=== PATIENT | female | born 1985 | race Caucasian/White ===

== ENCOUNTER 2017-10-24 10:19 | Inpatient (IN) ==
[2017-10-24] MEDS ORDERED: Famotidine 20 MG/2 ML VIAL IVP PRN (10:35)
[2017-10-24] MEDS ORDERED: Naloxone 0.4 MG/ML INJ IVP PRN (10:35)
[2017-10-24] MEDS ORDERED: *HR* Nalbuphine 20 MG/ML AMPUL IVP PRN (10:35)
[2017-10-24] MEDS ORDERED: Ondansetron 4 MG/2 ML VIAL IVP PRN (10:35)
--- NOTE | 2017-10-24 10:45 | OB/GYN History & Physical ---
Date of Encounter: 10/24/17 Time of Encounter: 11:00 Assessment and Plan (1) 39 weeks gestation of Current visit: Yes Status: Acute Plan: - admit to labor and delivery - obtain CBC - FHR monitored, baseline = 140 - expectant management. Will induce with AROM. - anticipate vaginal delivery (2) Encounter for induction of labor Current visit: Yes Status: Acute (3) Grand multiparity Current visit: Yes Status: Acute History of Present Illness Chief complaint: induction of labor HPI: Ms. Tripp is a 32 year old female at 39+3 weeks presented to L&D for an induction of labor due to advanced cervical dilation and grand multiparity. is uncomplicated. Patient follows with Dr. Oates outpatient. Reports active movement. Patient denies contractions, vaginal bleeding. or loss of fluid. Patient was sent over from the office for induction of labor as she was dilated to 5cm. PNL: blood type O+, RPR neg, RI, HBsAg neg, HIV neg, GBS neg Past Med Surg Social Fam HX - Past Medical History Medical history: other (stress urinary incontinence ) - Past Surgical History Surgical History: appendectomy - Social History Smoking Status: Never smoker - Family History Maternal Hx Family Endocrine Disorder: Yes (diabetes, thyroid CA, lung CA) Obstetrical History - Pregnancies : 5 Para: 3 Term: 3 : 0 Ab's: 1 Livin - History/Complications History/Complications: Total pregnancies 5. Total living children 3. Miscarriage(s) 1. # 1: 05/29/2011, vaginal delivery, EGA 39 weeks, male, 7-5#. # 2: 08-19-13 , male normal spontaneous vaginal delivery () FT 7lbs 2oz "Jason" bottle feeding. # 3 2014,Male,8lbs 10oz,Vaginal,full term. Review of System OB All systems PM: reviewed and no additional remarkable complaints except as stated Exam - Constitutional Constitutional: well developed, well nourished, no acute distress, average body habitus - HEENT HEENT: Normocephaly, Mucus Membranes Moist - Neck Neck exam: full ROM - Lungs Respiratory exam: CTAB - Cardiovascular Cardiovascular exam: RRR - Abdomen Abdomen: Absent: non tender - Vagina Vagina: Present: normal moisture - Cervix Dilation: 5 (per nursing ) - Uterus Uterus exam: Present: normal size Results Result Diagrams: 10/24/17 11:05 All other labs normal. - VTE Reasons for not Prescribing Prophylaxis: Treatment not Indicated - Low risk for VTE
[2017-10-24 11:28] LABS: Basophils % 0.2 %; Eosinophils # 0.1 K/mcL (0.0-0.6); Eosinophils % 0.7 %; Hematocrit 34.9 % (35.3-44.9); Hemoglobin 11.1 g/dL (11.5-15.4); Immature Granulocytes % 1.1 % (0-4); Lymphocytes # 1.2 K/mcL (0.6-4.6); Lymphocytes % 11.8 %; Mean Corpuscular HGB Conc 31.8 g/dL (31.6-35.5); Mean Corpuscular Hemoglobin 26.4 pg (28.0-33.3); Mean Corpuscular Volume 82.9 fL (83.0-100.0); Mean Platelet Volume 10.8 fL (9.4-12.4); Monocytes # 0.6 K/mcL (0.0-1.3); Monocytes % 5.4 %; Neutrophils # 8.2 K/mcL (1.6-8.9); Platelet Count 190 K/mcL (140-400); Red Blood Count 4.21 M/mcL (3.82-4.97); Red Cell Distribution Width 15.9 % (11.5-14.5); Segmented Neutrophils % 80.8 %
[2017-10-24 11:35] LABS: Amphetamine Screen,Urine Negative ng/mL (Cutoff=1000); Barbiturate Screen,Urine Negative ng/mL (Cutoff=200); Benzodiazepines Screen,Urine Negative ng/mL (Cutoff=200); Cannabinoid Screen,Urine Negative ng/mL (Cutoff = 50); Cocaine Screen,Urine Negative ng/mL (Cutoff= 300); Opiate Screen,Urine Negative ng/mL (Cutoff=300); Phencyclidine Screen,Urine Negative ng/mL (Cutoff=25)
[2017-10-24] MEDS: Ringers Solution, Lactated 1,000 ML IVC SCH ×2 (11:49→18:14)
--- NOTE | 2017-10-24 12:12 | OB Labor Progress Note ---
Date of Encounter: 10/24/17 Time of Encounter: 12:10 Labor Progress Note - Subjective Subjective: Pt resting comfortably. - Cervix Cervix: 5-6/80/-1 - Heart Tones Heart Tones: Category I - [place]: rare UC - Interventions Interventions: AROM for moderate amount clear fluid - Plan Plan: Continue to monitor. Anticipate .
[2017-10-24] MEDS ORDERED: Oxytocin 20 units/ LR 1000 mL 20 UNIT/1,000 ML BAG IVC SCH ×2 (15:15→23:27)
[2017-10-24] MEDS ORDERED: Epidural Premix (fent/bupiv) 110 ML EP ONE (18:11)
[2017-10-24] MEDS ORDERED: Epidural Premix (fent/bupiv) 110 ML EP SCH (18:15)
[2017-10-24] MEDS ORDERED: EPHEDrine 50 MG/ML VIAL ONE (18:39)
--- NOTE | 2017-10-24 20:13 | OB/GYN Procedure Note ---
Delivery - Delivery Date: 10/24/17 Provider: Tammy Lynn Intrapartum events: none Delivery induction: AROM, oxytocin Delivery augmentation: pitocin Delivery monitor: external FHT, external uterine Anesthesia: epidural Estimated Blood Loss: 100 - (s) Infant A Delivery Date: 10/24/17 Delivery Time: 19:51 Presentation: vertex Position: IBRAHIMA Route of delivery: Gender: Male Viability: Viable Pounds: 7 Ounces: 12 Weight Gram: 3.52 kg at 1 minute: 8 at 5 mins: 9 Shoulder Dystocia: not encountered Specimens collected: cord blood Placenta: spontaneous Cord: nuchal cord (loose), nuchal reduced - Repair Episiotomy: none Laceration Description: None - Complications Delivery complications: none Delivery comments: of vigorous viable male infant in the IBRAHIMA position. Shoulders delivered easily. Loose nuchal x 1 reduced prior to delivery. No meconium. No shoulder dystocia. placed on mom's abdomen. Apgars 8/9 at 1 and 5 minutes. Cord double clamped and cut after pulsations ceased. Placenta delivered spontaneously appears grossly intact. Upon peritoneal inspection, no lacerations present. Pericare instructions given to patient. Fundus firm and at u/3. EBL 100ml. Infant delivery attended by Dr. Carmencita Campbell. Lindsey Lynn CNM present in room for delivery. and mother stable in recovery. - Disposition Mom disposition: stable in LDR [place] disposition: taken to nursery
--- NOTE | 2017-10-24 20:28 | Anesthesia Evaluation PreOp ---
Date of Encounter: 10/24/17 Time of Encounter: 18:15 - Past History Planned Operation: rere Cardiac History: Denies any Significant Hx Pulmonary History: Denies Any Significant HX PHYSICAL EDUCATION TEACHER History: Denies Any Significant HX Anesthesia History: No Prior Anesthetic Complications : Yes Test: Positive Alcohol Use: none Drug use: none Medications and Allergies Ferrous Sulfate [Iron] 325 mg PO DAILY 10/24/17 [History] Vit/Iron Fumarate/FA [ Tablet] 1 each PO DAILY 10/24/17 [ History] 3 Allergy/AdvReac Type Severity Reaction Status Date / Time No Known Allergies Allergy Verified 10/24/17 11:41 - Meds/Allergy Pre-op Review Medications Reviewed: Yes Allergies Reviewed: Yes Beta Blockers on Current Med List: No Anesthesia Results - Labs 10/24/17 11:05 Anesthesia Exam Height: 67 Weight: 92 NPO (# of Hours): mn Pain Scale: 8 - HEENT Pupil (Motor): Pupils equal Mallampati: II Teeth: Normal Oral Opening: Greater than 3 - PHYSICAL EDUCATION TEACHER LOC: Oriented PHYSICAL EDUCATION TEACHER Motor: Normal RUE, Normal LUE, Normal RLE, Normal LLE, Normal Face PHYSICAL EDUCATION TEACHER Sensory: Normal: RUE, LUE, RLE, LLE, Face - Cardiac Rhythm: Regular Murmur: None JVD: No Carotid Bruit: No - Pulmonary Breath Sounds: bilateral Clear Respiratory Effort: Symmetrical Anesthesia Assess/Plan ASA Score: 2 Modified Henna Scale for Level of Consciousness: Cooperative, oriented, and tranquil Anesthetic Plan: Regional Autologous Blood: No Monitoring Plan: Standard Monitors
--- NOTE | 2017-10-24 20:31 | Anesthesia Procedures ---
Date of Encounter: 10/24/17 Time of Encounter: 18:15 Procedures: Anesthesia - Epidural/Spinal Patient ID/Chart reviewed: Yes Patient examined: Yes OB Eval: Gestational age: 39.3 OB Eval: : 5 OB Eval: Hx Para: 3 OB Eval: Dilated at (cm): 5 OB Eval: Contractions: Non-stressed pattern Consent Obtained: Yes Site Prep: Aseptic Technique, Sterile prep and drape, Povidone-Iodine 1% Patient position: upright Amount of Local Anesthetic used: 3 Touhy Needle Gauge: 18 Touhy Needle Depth (cm): 7 Catheter Depth at Skin (cm): 9 Test Dose (1.5% Lido + Epi): Volume given (mls): 3 Test Dose Result: Negative Loading Dose Administered: Thru Catheter Infusion Rate (mls/hr): [address]: Tegaderm, Tape Interspace Used: L4-L5 Loss of Resistance (SHERWIN): Yes Blood: No CSF: No Paresthesia: No Vitals + FHT's: stable throughout see nursing notes
[2017-10-24] MEDS ORDERED: Benzocaine/Menthol 56 GM AEROSOL SPRAY TP PRN (23:27)
[2017-10-24] MEDS ORDERED: Acetaminophen 325 MG TABLET PO PRN (23:27)
[2017-10-24] MEDS ORDERED: Measles/Mumps/Rubella Vacc 0.5 ML VIAL SQ PRN (23:27)
[2017-10-24] MEDS ORDERED: Rho Immune Globulin 1,500 UNIT SYRINGE IM PRN (23:27)
[2017-10-25] MEDS: Ibuprofen 600 MG TABLET PO PRN ×3 (08:20→20:12)
[2017-10-25] MEDS ORDERED: Prenatal Vit/FA 1 EACH TABLET PO SCH (09:00)
--- NOTE | 2017-10-25 11:32 | Discharge Summary ---
Date of Encounter: 10/25/17 Time of Encounter: 11:30 - Discharge Diagnosis (1) Status post vaginal delivery Priority: Primary Status: Acute Comments: Pt doing well with no complaints Meeting milestones - tolerating po intake, voiding well, ambulating well Pt may be discharged home (2) 39 weeks gestation of Priority: Secondary Status: Acute - Discharge Medications Prescriptions: Ibuprofen [Motrin] 600 mg PO Q6HR PRN #60 tablet PRN Reason: Cramping Docusate [Colace] 100 mg PO BID PRN #60 capsule PRN Reason: Constipation Home Medications: Ferrous Sulfate [Iron] 325 mg PO DAILY 10/24/17 [History] Vit/Iron Fumarate/FA [ Tablet] 1 each PO DAILY 10/24/17 [ History] Benzocaine/Menthol Doerun [Dermoplast Doerun] 1 appl TP QID PRN #0 aerosol [Rx] Docusate [Colace] 100 mg PO BID PRN #60 capsule 10/25/17 [Rx] Ibuprofen [Motrin] 600 mg PO Q6HR PRN #60 tablet 10/25/17 [Rx] Allergies/Adverse Reactions: 3 Allergy/AdvReac Type Severity Reaction Status Date / Time No Known Allergies Allergy Verified 10/24/17 11:41 Data Procedures and tests throughout hospitalization: Laboratory Tests 10/24/17 10/24/17 10/24/17 11:05 11:05 20:30 WBC 10.1 RBC 4.21 Hgb 11.1 L Hct 34.9 L MCV 82.9 L MCH 26.4 L MCHC 31.8 RDW 15.9 H Plt Count 190 MPV 10.8 Immature Gran % 1.1 Seg Neutrophils % 80.8 Lymphocytes % 11.8 Monocytes % 5.4 Eosinophils % 0.7 Basophils % 0.2 Neutrophils # 8.2 Lymphocytes # 1.2 Monocytes # 0.6 Eosinophils # 0.1 Basophils # 0.0 Urine Opiates Screen Negative Ur Barbiturates Screen Negative Ur Phencyclidine Scrn Negative Ur Amphetamines Screen Negative U Benzodiazepines Scrn Negative Urine Cocaine Screen Negative U Marijuana (THC) Screen Negative Baby's Blood Type O RH NEGATIVE Mother's Blood Type O RH NEGATIVE Labs on day of discharge: Labs from last 24 hours 10/24/17 10/24/17 10/24/17 20:30 11:05 11:05 WBC 10.1 RBC 4.21 Hgb 11.1 L Hct 34.9 L MCV 82.9 L MCH 26.4 L MCHC 31.8 RDW 15.9 H Plt Count 190 MPV 10.8 Immature Gran % 1.1 Seg Neutrophils % 80.8 Lymphocytes % 11.8 Monocytes % 5.4 Eosinophils % 0.7 Basophils % 0.2 Neutrophils # 8.2 Lymphocytes # 1.2 Monocytes # 0.6 Eosinophils # 0.1 Basophils # 0.0 Urine Opiates Screen Negative Ur Barbiturates Screen Negative Ur Phencyclidine Scrn Negative Ur Amphetamines Screen Negative U Benzodiazepines Scrn Negative Urine Cocaine Screen Negative U Marijuana (THC) Screen Negative Baby's Blood Type O RH NEGATIVE Mother's Blood Type O RH NEGATIVE Date of admission: 10/24/17 10:19 Primary care physician: PCP NONE Discharging clinician: Melvin Hansen Anticipated date of discharge: 10/25/17 - Patient Status Disposition: Home, Self-Care Condition: Good Functional capacity at discharge: independent ambulation Overall status at discharge: patient is progressing back to baseline - Discharge Instructions Follow Up With: NONE,PCP [Primary Care Provider] - Additional Instructions: Take medications as prescribed Follow-up with your OB in 4-6 weeks - Diet and Activity Activity: increase activity as tolerated Diet: advance to your usual diet Hospital Course Reason for admission: induction of labor Delivery: Episiotomy: none Laceration: none Other procedures: none complications: none Discharge diagnosis: IUP at term delivered [place] baby: male Hospital course: - Delivery Date: 10/24/17 Provider: Tammy Lynn Intrapartum events: none Delivery induction: AROM, oxytocin Delivery augmentation: pitocin Delivery monitor: external FHT, external uterine Anesthesia: epidural Estimated Blood Loss: 100 - Infant (s) Infant A Infant Delivery Date: 10/24/17 Infant Delivery Time: 19:51 Presentation: vertex Position: IBRAHIMA Route of delivery: Gender: Male Viability: Viable Pounds: 7 Ounces: 12 Weight Gram: 3.52 kg at 1 minute: 8 at 5 mins: 9 Shoulder Dystocia: not encountered Specimens collected: cord blood Placenta: spontaneous Cord: nuchal cord (loose), nuchal reduced - Repair Episiotomy: none Laceration Description: None - Complications Delivery complications: none Pt doing well and meeting milestones. Pain controlled. She may be discharged home. Time Attestation: Total time spent providing and/or coordinating discharge services: Time Spent: Less than 30 minutes Exam - Constitutional Vitals: Temp Pulse Resp BP Pulse Ox 98.4 F 85 14 98/59 99 10/25/17 08:19 10/25/17 08:19 10/25/17 08:19 10/25/17 08:19 10/25/17 00:30 General appearance IM: A&O X 3, no acute distress - Respiratory Respiratory exam: Present: CTAB - Cardiovascular Cardiovascular exam IM: Present: RRR, +S1, +S2 - GI/Abdominal GI/Abdominal exam IM: normal bowel sounds, soft, no peritoneal signs - Uterus Position: 2 Fingers Below Umbilicus - Extremities Exam Extremities exam IM: Present: normal capillary refill, normal inspection - Neurological Exam Neurological exam: alert, no focal deficits - Attending Attestation I examined this patient and my medical decision-making was reviewed with the Resident Physician. I agree with the documented findings, disposition and treatment plan as described. Concetta Hughes CNM
[2017-10-25 20:41] VITALS: BP 106/59
== END 2017-10-25 21:30 | disposition home or self-care (01) | DRG 775 ==
LOC: 1NENULAB 10:19 → 1NENUOBS 22:34
PROVIDERS: ADMIT Registered Nurse; ATTEND Obstetrics & Gynecology